=== PATIENT | female | born 1955 | race Caucasian/White ===

== ENCOUNTER 2018-06-25 11:30 | Outpatient (RCR) | payer BC, SELFPAY ==
--- NOTE | 2018-05-28 13:52 | HP.PTEVAL_ITS ---
Patient's Visit Information JEFFERY CLAYTON is a 63 year old F referred to Physical Therapy by Tommy Garnett DPM with a diagnosis of Left Ankle/Foot surgery. Date of Evaluation: 05/28/18 Physical Therapist: Davina Yarbrough DPT - Visit Plan Frequency: 2x /Week Duration: 4 Weeks Plan: Waiting to hear back from MD- current status is boot during PT. Focus on LE and core s/s s/p ankle/foot surgery with focus on functional mobility - Subjective Findings: Left plantar fasciotomy and achillles resection april [address] Briggs. After 4 weeks she was allowed to put the boot on and she has been putting weight on it ever since- was using a knee bike- Has no used an AD with a boot but was told not to put weight on it without the boot on. Does not sleep in the boot. Fully I prior to surgery. Does not work ouside of the home. Current pain level ia 3-5/10. Worst: 5/10 Agg: being up on it to long (45 min to an hour). Eases: rest, elevation. Best: 0/10. Pain is located in the bottom of the heel. Describes the pain as achy pains in the leg and sharp pain in the heel. No N/T currently. Wears compression stocks and that helps with her varicous veins. Sleep: does wake her up sometimes with shooting pains. PMhx/Meds: scanned in chart. Very active with her home management- was walking on the TM in the house but stopped due to pain- started with 15 min and was almost up to 45 min to an hour. Does wear orthotics in her shoes. No recent x- rays or MRI - Objective Posture: Fh, RS- can correct with verbal cues but does not maintain. Gait: antalgic- CAM walker on the left LE- poor heel/toe pattern. Observation: incision healed well- mild dry skin around incision but no redness. Girth: 6 above ankle joint:31 cm 8 above ankle joint: 37 cm Figure 8: 51 cm Malls: 25 cm Mets: 21cm. ROM: DF: neutral, PF: 40 degrees, Inv: 40 degrees Ever: 30 degrees Knee/hip: WFL. Strength: Ankle: 4/5 throughout available range. Flex: Gastroc: mod, Soleus: mild HS: mod. Standing not tested until MD clearance without boot - Goals Goal 1:: Patient will be I with HEP and progression Goal Time Frame: 4-6 Weeks Goal 2:: Patient will ambulate >300 feet with a normalized gait pattern no AD or cam walker per MD orders Goal Time Frame: 4-6 Weeks Goal 3:: Patient will SLS for 30 sec without LOB Goal Time Frame: 4-6 Weeks Goal 4:: Patient will demo 5/5 strength in LE where deficit Goal Time Frame: 4-6 Weeks - Rehabilitation Potential Physical Therapy Diagnosis: Patient presents with hypomobility- she has decreas ed ROM, strength and muscular endurance in LE leading to abnormal gait pattern and diminished participation in ADL's. Rehabilitation Potential: Good - Anticipated Interventions Patient/Client Instruction: Educate patient on: Benefits of Fitness Program Therapeutic Exercise to Include: Strength training, Endurance training, Balance training, Agility training, Body mechanics, Postural training, Flexibilty training, Gait and locomotor training, Dynamic Lumbar Stabilization For the Purpose of:: To improve muscle performance and motor function TENS: Yes Cryotherapy (ice pack, ice massage): Yes Thermo therapy (hot pack): Yes Ultrasound (thermal/non thermal): Yes For the Purpose of:: To decrease pain, To decrease swelling/inflammation Thank you for the opportunity to evaluate your patient. For Medicare and Medicare HMO plans, please review the plan of care and approve it. It will need to be FAXED BACK to us at [phone] for Medicare purposes. For Medicare only, by signing this I certify the plan of care. Please let me know if there are questions or concerns regarding this plan of care. Physician Signature: Date:
--- NOTE | 2018-06-25 11:48 | HP.PTDCSUM ---
HP - PT D/C Summary It has been my pleasure to treat JEFFERY CLAYTON under orders from Tommy Garnett DPM, for the diagnosis of Left Ankle/Foot surgery for a total of 8 visit(s). Discharge Date: Please see the following information for a summary of their discharge status. - Subjective Subjective: Patient reports that the pain is much better. 1/10 at the worst. Reports there is nothing she can't do with her foot. She was on a step ladder yesterday. Is in shoes all the time. - Pain L foot Pain Intensity (Out of 10): 0 - Overall Improvement % Improvement: 95 - Objective Objective/Function: Posture: Fh, RS- can correct with verbal cues but does not maintain. Gait: slightly antalgic- mild decrease in heel/toe pattern. Observation: incision healed well ROM: DF: 10 degrees, PF:60 degrees, Inv: 40 degrees Ever: 30 degrees Knee/hip: WFL. Strength: Ankle: 5/5 . Flex: Gastroc: mild, Soleus: mild HS: mod. SLS: 15 sec without LOB - Goals Goal 1:: Patient will be I with HEP and progression Goal Progress: Goal Met Goal 2:: Patient will ambulate >300 feet with a normalized gait pattern no AD or cam walker per MD orders Goal Progress: Progressing Goal 3:: Patient will SLS for 30 sec without LOB Goal Progress: Progressing Goal 4:: Patient will demo 5/5 strength in LE where deficit Goal Progress: Goal Met - Plan Plan: Discharge to I HEP - D/C Information If there are questions or concerns regarding this patient's physical therapy, please feel free to call me at [phone]. Thank you for the referral of this patient. Sincerely, YORDAN MarquisT
== END 2018-06-25 19:00 | disposition home or self-care (01) ==
LOC: PT 11:30
PROVIDERS: Family Provider Internal Medicine; PCP Internal Medicine; Referring Provider Podiatrist; Visit Provider Podiatrist
DX: Z98.890 Other specified postprocedural states (principal)
CPT/HCPCS: 97110; 97116; 97161; 97164

== ENCOUNTER 2019-01-15 03:19 | Emergency (ER) | payer BC, SELFPAY ==
[2019-01-15 03:20] VITALS: BP 156/72; PULSE 98; RESP 16; TEMP 36.4; O2SAT 97; BMI 32.6
--- NOTE | 2019-01-15 03:33 | US_ITS ---
STUDY: ABDOMINAL ULTRASOUND - RIGHT UPPER QUADRANT REASON FOR VISIT: Female, 63 years old upper abdominal pain. TECHNIQUE: Ultrasound evaluation of the right upper quadrant was performed with real-time and static adkins-scale imaging. TECHNICAL QUALITY: Adequate. COMPARISON: None. FINDINGS: Liver: The liver measures 14.6 cm. There is normal echogenicity of the liver. The bile ducts are within normal limits. There is hepatic color flow. The direction of portal flow is hepatopetal. There is no demonstrated mass lesion. Gallbladder: Normal distended gallbladder. The gallbladder wall measures 2.6 mm. There is a negative sonographic Mendez's sign. There is no pericholecystic fluid. There are multiple gallstones, ranging up to about 3.6 cm. Common Bile Duct (C.B.D.): The common bile duct measures 6.3 mm. Pancreas: Normal size of the head, body and tail of the pancreas. There is normal echogenicity of the pancreas. There is no demonstrated pancreatic mass or cyst. Right Kidney: Normal size of the right kidney. The right kidney measures 11.0 x 4.8 x 4.3 cm. Normal renal cortex. The right cortex measures 1.3 cm. There is no demonstrated renal mass or cyst. There is no right hydronephrosis. US/Gallbladder IMPRESSION: Multiple gallstones in an otherwise normal-appearing gallbladder. No bile duct dilatation. Electronically Signed: Rey Gramajo MD at 4:57 EDT , Service support ,
--- NOTE | 2019-01-15 03:33 | ED.DCSUM_ITS ---
History of Present Illness Chief Complaint: Abd Pain Narrative: Patient is a 63-year-old female who presents with abdominal pain. This began about 5 PM yesterday. She rates it as a 20 out of 10. She was trying to wait to see if the symptoms would improve. She tried Pepto-Bismol without relief. She complains of upper abdominal pain radiating through to the back. This is across the entire upper abdomen is not worse on one side of the other. She describes it as cramping in nature. She had one episode of nonbloody nonbilious emesis shortly before presentation here to the emergency department. She had diarrhea last week but this has since resolved. She does report sweats tonight and felt hot but did not check her temperature. Prior surgical history includes total hysterectomy. She is not treated for hyperlipidemia. She denies alcohol use. Past Medical History - Allergies and Home Meds Allergies/Adverse Reactions: Allergies acetaminophen [From Vicodin] Allergy (Verified 01/15/19 03:26) Unknown clarithromycin [From Biaxin] Allergy (Verified 01/15/19 03:26) Unknown hydrocodone bitartrate [From Vicodin] Allergy (Verified 01/15/19 03:26) Unknown ibuprofen [From Motrin] Allergy (Verified 01/15/19 03:26) Vomiting ketoprofen Allergy (Verified 01/15/19 03:26) Unknown orphenadrine Allergy (Verified 01/15/19 03:26) Unknown Penicillins Allergy (Verified 01/15/19 03:26) Rash propoxyphene HCl [From Darvon] Allergy (Verified 01/15/19 03:26) Unknown tramadol HCl [From Ultram] Allergy (Verified 01/15/19 03:26) Unknown celecoxib [From Celebrex] Adverse Reaction (Verified 01/15/19 03:26) Other Primary Care Physician: Marjorie Ortiz MD [Primary Care Provider] - Past Medical History: - - Thyroid disease Surgical History: hysterectomy Smoking Status: Former smoker Review of Systems All systems negative except as indicated General: Reports: Fever, Subjective, Sweats Cardiovascular: Denies: Chest pain Respiratory: Denies: Dyspnea Gastrointestinal: Reports: Abdominal pain, Nausea, Vomiting, Diarrhea Physical Exam Vital Signs/Narrative: Vital Signs Temp Pulse Resp BP Pulse Ox 01/15/19 03:20 97.6 F L 98 16 156/72 H 97 Inital Vital Signs reviewed: Yes General: Well nourished, - - Patient appears uncomfortable, moaning Head: Normocephalic Eyes: EOMI ENT: Moist mucous membranes Cardiovascular: Regular rate, Regular rhythm Respiratory: No distress, CTA bilaterally Abdomen: Soft, Tender - Epigastric and bilateral upper quadrant abdominal tenderness without guarding without rebound nondistended Skin: Normal color Neurological: Alert Psychological: Normal affect Diagnostic/Tx/Re-eval Impressions Gallbladder Ultrasound 01/15/19 03:33 IMPRESSION: Multiple gallstones in an otherwise normal-appearing gallbladder. No bile duct dilatation. Electronically Signed: Rey Gramajo MD at 4:57 EDT , Service support , 01/15/19 03:33 Gallbladder [US] Stat Laboratory Results 01/15/19 01/15/19 03:25 03:25 WBC 9.8 RBC 4.48 Hgb 12.2 Hct 39.1 MCV 87.3 MCH 27.2 MCHC 31.2 L RDW Std Deviation 46.1 H RDW Coeff of Kvng 14.4 Plt Count 238 MPV 10.3 Immature Gran % (Auto) 0.200 Neut % (Auto) 86.8 H Lymph % (Auto) 9.9 L Rock % (Auto) 2.7 Eos % (Auto) 0.1 Baso % (Auto) 0.3 Absolute Neuts (auto) 8.5 H Absolute Lymphs (auto) 0.97 Nucleated RBC % 0 Sodium 140 Potassium 2.9 L Chloride 100 Carbon Dioxide 29.0 Anion Gap 11 BUN 13 Creatinine 1.08 H Estim Creat Clear Calc 39.71 Est GFR (MDRD) Af Amer 66 Est GFR (MDRD) Non-Af 54 L BUN/Creatinine Ratio 12.0 Glucose 138 H Calcium 9.9 Total Bilirubin 0.30 AST 17 ALT 24 Alkaline Phosphatase 145 H Total Protein 8.4 H Albumin 3.8 Globulin 4.6 H Albumin/Globulin Ratio 0.8 L Lipase 214 - Medical Decision Making Patient was treated with IV fluids, morphine, Zofran. She had a greater than 50% improvement of symptoms. Her laboratory studies as above are unremarkable except potassium 2.9. Right upper quadrant ultrasound showed multiple gallstones. She does not have evidence of acute cholecystitis. She was given IV potassium chloride and we will also start her on oral KCl. She was given prescriptions for [place] and Zofran for as needed for symptomatic relief and she was referred to surgery for outpatient follow-up. She understands to return for new or worsening symptoms and was advised on specific signs and symptoms to monitor for. She was counseled on diet to avoid biliary colic. ED Disposition - Plan for ED Patient: Disposition: Home or Assisted Living Diagnosis: Biliary colic Instructions: BILIARY COLIC with Gallstone (Confirmed) Prescriptions: Potassium Chloride [K-Dur] 20 meq PO DAILY #5 tab Prescription Printed Hydrocodone Bitart/Apap 5-325 [[place] 5MG-325MG] 1 tab PO Q6H PRN PRN 3 Days #10 tab PRN Reason: Pain Prescription Printed Ondansetron [Zofran Odt] 4 mg PO Q8H PRN PRN #10 tab PRN Reason: Nausea Prescription Printed Referrals: Marjorie Ortiz MD [Primary Care Provider] - Otf Fernández MD [STAFF PHYSICIAN] -
--- NOTE | 2019-01-15 03:33 | EKG12_ITS ---
Test Reason : ABD PAIN Blood Pressure : / mmHG Vent. Rate : 059 BPM Atrial Rate : 059 BPM P-R Int : 164 ms QRS Dur : 090 ms QT Int : 432 ms P-R-T Axes : 047 008 -02 degrees QTc Int : 427 ms Sinus bradycardia Otherwise normal ECG Confirmed by BERT DIAZ, JORDON ([id number]), editorial specialist HUMA TRIVEDI ([id number]) on 01/22/2019 9:34:20 A M Referred By: ALEXANDER Confirmed By:RIAZ NOEL MD
[2019-01-15] MEDS: 0.9% Normal Saline 1,000 ML 1000 ML IV (03:38)
[2019-01-15] MEDS: Morphine 4 MG/ML Syringe IV (03:38)
[2019-01-15] MEDS: Ondansetron 4 MG/2 ML Vial IV (03:38)
[2019-01-15 03:49] LABS: Absolute Lymphocyte Count 0.97 X10^3/uL (0.83-4.51); Absolute Neutrophil Count 8.5 X10^3/uL (2.0-7.7); Basophil# 0.03 X10^3/uL; Basophil% 0.3 % (0-1); Eosinophil# 0.01 X10^3/uL; Eosinophils% 0.1 % (0-5); Hematocrit 39.1 % (37-47); Hemoglobin 12.2 g/dL (12.0-15.0); Lymphocyte # 0.97 X10^3/ul (4.0); Lymphocyte % 9.9 % (19-41); Mean Corp Hgb Conc 31.2 g/dL (32-36); Mean Corpuscular Hgb 27.2 pg (27.0-32.0); Mean Corpuscular Volume 87.3 fL (81-99); Mean Platelet Vol. 10.3 fl (6.2-12.0); Monocyte# 0.27 X10^3/uL; Monocyte% 2.7 % (0-10); NRBC Flagged by Analyzer 0 % (0-5); Neutrophil # 8.52 X10^3/uL (2.7-7.7); Neutrophil % 86.8 % (47-70); Platelet Count 238 K/mm3 (150-450); RBC Distribution Width CV 14.4 % (11.6-14.6); RBC Distribution Width SD 46.1 fl (35.1-43.9); Red Blood Count 4.48 M/mm3 (4.2-5.4); White Blood Count 9.8 K/mm3 (4.4-11.0)
[2019-01-15 04:00] LABS: ALB/GLOB Ratio 0.8 RATIO (0.9-2.4); AST(SGOT) 17 U/L (15-37); Alanine Aminotransfer ALT/SGPT 24 U/L (13-56); Albumin, Serum 3.8 g/dL (3.2-5.0); Alkaline Phosphatase 145 U/L (45-117); Anion Gap 11 (5-15); BUN 13 mg/dL (7-18); Calcium,Total 9.9 mg/dL (8.5-10.1); Chloride 100 mmol/L (98-107); Creatinine, Serum 1.08 mg/dL (0.55-1.02); EST Glomerular Filtration Rate 54 mL/min (>60); Est Glom Filt Rate - Afr Amer 66 mL/min (>60); Estimated Creatinine Clearance 39.71 ml/min; Globulin 4.6 g/dL (2.2-4.2); Glucose 138 mg/dL (74-106); Lipase 214 U/L (73-393); Potassium 2.9 mmol/L (3.5-5.1); Protein, Total 8.4 g/dL (6.4-8.2); Sodium Level 140 mmol/L (136-145)
[2019-01-15 04:19] VITALS: BP 148/71; PULSE 67; RESP 12; O2SAT 99
[2019-01-15] MEDS: Potassium Chloride 10mEq/100mL 10 MEQ/100 ML IV.SOLN. 100 MEQ IV BOLUS ×4 (05:08→08:47)
[2019-01-15] MEDS: Ketorolac 30 MG/ML Syringe IV (05:15)
[2019-01-15 05:19] VITALS: BP 141/72; PULSE 61; RESP 11; O2SAT 89
--- NOTE | 2019-01-15 06:41 | ED.RN ---
PT STATED SHE WAS HAVING LEG CRAMPS. MD MADE AWARE NO FURTHER ORDERS AT THIS TIME, WILL CONTINUE TO MONITOR THE PT.
[2019-01-15 07:00] VITALS: BP 104/79; PULSE 66; RESP 14; O2SAT 98
[2019-01-15 08:32] VITALS: BP 121/70; PULSE 64; RESP 11; O2SAT 100
[2019-01-15 10:36] VITALS: BP 134/68; PULSE 52; PULSE 57; RESP 15; RESP 17; O2SAT 100; O2SAT 99
== END 2019-01-15 10:44 | disposition home or self-care (01) ==
PROVIDERS: Emergency Provider Emergency Medicine; Family Provider Internal Medicine; PCP Internal Medicine
DX: K80.70 Calculus of gallbladder and bile duct without cholecystitis without obstruction (principal); E87.6 Hypokalemia; E07.9 Disorder of thyroid, unspecified; Z88.6 Allergy status to analgesic agent; Z88.5 Allergy status to narcotic agent; Z88.0 Allergy status to penicillin; Z87.891 Personal history of nicotine dependence; Z90.710 Acquired absence of both cervix and uterus
CPT/HCPCS: 76705; 80053; 83690; 85025; 93005; 96361; 96365; 96366; 96375; 99284; J7030; A4216; J2405

== ENCOUNTER 2019-01-22 17:34 | Observation (INO) | payer BC, SELFPAY ==
[2019-01-17 08:46] VITALS: BMI 32.6
--- NOTE | 2019-01-17 09:33 | HP_ITS ---
Intake Vital Signs 01/17/19 Body Mass Index (BMI) 32.6 01/17/19 Height 5 ft 1 in 01/17/19 Blood Pressure 150/90 H 01/17/19 Blood Pressure Location Rt brachial 01/17/19 Respiratory Rate 18 Intake Visit Reasons: ER 01/15 Gall Stones Ip Architect Required: No Is patient in pain?: No Allergies acetaminophen [From Vicodin] Allergy (Verified 01/17/19 08:46) Unknown clarithromycin [From Biaxin] Allergy (Verified 01/17/19 08:46) Unknown hydrocodone bitartrate [From Vicodin] Allergy (Verified 01/17/19 08:46) Unknown ibuprofen [From Motrin] Allergy (Verified 01/17/19 08:46) Vomiting ketoprofen Allergy (Verified 01/17/19 08:46) Unknown orphenadrine Allergy (Verified 01/17/19 08:46) Unknown Penicillins Allergy (Verified 01/17/19 08:46) Rash propoxyphene HCl [From Darvon] Allergy (Verified 01/17/19 08:46) Unknown tramadol HCl [From Ultram] Allergy (Verified 01/17/19 08:46) Unknown celecoxib [From Celebrex] Adverse Reaction (Verified 01/17/19 08:46) Other Medications Ascorbic Acid [Vitamin C] 1,000 mg PO DAILY 01/15/19 [History Confirmed 01/17/19] Biotin 800 mcg PO DAILY 01/15/19 [History Confirmed 01/17/19] Calcium Carbonate/Vitamin D3 [Calcium 600-Vit D3 800 Tablet] 2 ea PO DAILY 01/15/19 [History Confirmed 01/17/19] Estradiol [Estrace (G)] 1 mg PO DAILY 01/15/19 [History Confirmed 01/17/19] Hydrocodone Bitart/Apap 5-325 [[place] 5MG-325MG] 1 tab PO Q6H PRN PRN 3 Days #10 tab 01/15/19 [Rx Confirmed 01/17/19] Levothyroxine Sodium 88 mcg PO DAILY 01/15/19 [History Confirmed 01/17/19] Loratadine [Claritin] 10 mg PO DAILY 01/15/19 [History Confirmed 01/17/19] Multivitamin with Minerals [Multiple Vitamin] 1 ea PO DAILY 01/15/19 [History Confirmed 01/17/19] Ondansetron [Zofran Odt] 4 mg PO Q8H PRN PRN #10 tab 01/15/19 [Rx Confirmed 01/17/19] Potassium Chloride [K-Dur] 20 meq PO DAILY #5 tab 01/15/19 [Rx Confirmed 01/17/19] PFSH Medical History Allergies (Acute) Gallstones (Acute) Hypothyroid (Acute) Surgical History Previous back surgery (Acute) S/P carpal tunnel release (Acute) S/P foot surgery (Acute) S/P hysterectomy (Acute) Family History Mother Cancer Social History (Updated 01/17/19 @ 09:33 by Otf Fernández MD) Smoking Status: Former smoker alcohol intake: never HPI HPI HPI: JEFFERY CLAYTON, is a 63 F who presents to the office today for HPI HPI Surgical H&P: Yes HPI: JEFFERY CLAYTON, is a 63 F who presents to the office today for Gallstone. Patient has been having epigastric pain intermittently for the last few years. She says over the last 2 weeks has been much worse. She had a ultrasound of her gallbladder which showed a very large gallstone. There were no signs of acute cholecystitis. ROS General General: Yes weight change and fatigue; no appetite HEENT HEENT: No difficulty swallowing, eye injury or eye surgery Endo Endocrine: Yes thyroid disease; no diabetes mellitus Skin Skin: No rash or changing moles Musc Musculoskeletal: Yes back problems; no arthritis or rheumatoid arthritis Cardio Cardiovascular: No murmur, pacemaker, heart disease, atrial fibrillation, high blood pressure, heart attack, heart stent, palpitations, shortness of breat with exertion or chest pain Psych Psychiatric: No depression or anxiety Resp Respiratory: No shortness of breath, No sleep apnea, No cough, No COPD, No asthma, No emphysema, No wheezing Gastro Gastrointestinal: Yes abdominal pain, Yes nausea or vomiting, Yes diarrhea, No constipation, No blood in stool, No acid reflux, Yes hemorrhoids, No ulcers, Yes gallbladder problem, No black,tarry stools Alec Hematologic: No blood thinners, No blood disorders Neuro Neurologic: Yes system reviewed and no additional complaints, except as docu Exam Const General: cooperative Orientation: alert, oriented x3 HENMT Head: normal to inspection Ears: hearing grossly normal bilaterally Eyes General: appearance normal, both eyes and all related structures Visual Dove: normal visual dove by confrontation Neck Neck: normal visual inspection Chest Chest palpation & inspection: normal inspection of the chest Resp Effort & Inspection: normal respiratory effort Auscultation: clear to auscultation bilaterally Cardio Rate: regular rate Rhythm: regular rhythm Heart Sounds: no murmurs GI Inspection: non-distended Palpation: soft, nontender Musc Cervical Spine: normal cervical lordosis, cervical ROM normal Skin General: no rashes or lesions noted Neuro General: alert, oriented x3 Cranial Nerves: CN's II-XI intact bilaterally Cognition: normal cognition Extrem General: normal to inspection, full ROM Psych Appearance: grossly normal Affect: normal affect Assessment & Plan Problems 1. Calculus of gallbladder without cholecystitis without obstruction K80.20 Plan The patient had an ultrasound which showed a 1.8 cm gallstone in the neck of the gallbladder. Patient does have symptoms suggestive of biliary colic. I recommend laparoscopic cholecystectomy. I discussed the procedure in detail with the patient. I discussed the risks, benefits, and alternatives of the procedure. I discussed the risks including but not limited to bleeding, infection, injury to surrounding organs such as the liver, bile duct, bowels. I did discuss the possibility of having to convert to an open procedure as well as the possibility that if any injuries occurred this may necessitate further surgery at a tertiary care center. Otf Fernández MD Pager: [facility] [address] [place] [address], [address] [place] [address] Office: Coding Level of Care Code Off vis,new,level 4 Diagnoses Calculus of gallbladder without cholecystitis without obstruction K80.20 ??Cholelithiasis location: gallbladder ??Cholecystitis presence: without cholecystitis ??Biliary obstruction: without biliary obstruction Time Spent (min) 45 01/17/19 2480 <Electronically signed by Otf childress MD> Date _ Otf Fernández MD I have re-examined the patient. There are no clinical changes since date of exam.
[2019-01-20 09:09] LABS: Potassium 3.1 mmol/L (3.5-5.1); Thyroid Stim Hormone (TSH) 4.03 uIU/mL (0.358-3.74)
[2019-01-22] VITALS (12 sets, daily range): BP systolic 117–147; BP diastolic 51–76; PULSE 54–97; RESP 14–18; TEMP 36.4–37.1; O2SAT 93–100; BMI 31.7
--- NOTE | 2019-01-22 11:19 | EKG12_ITS ---
Test Reason : PRE OP Blood Pressure : / mmHG Vent. Rate : 068 BPM Atrial Rate : 068 BPM P-R Int : 164 ms QRS Dur : 078 ms QT Int : 408 ms P-R-T Axes : 041 001 000 degrees QTc Int : 433 ms Normal sinus rhythm Normal ECG When compared with ECG of 15-JAN-2019 03:45, No significant change was found Confirmed by BERT DIAZ, JORDON ([id number]), industrial editor HUMA TRIVEDI ([id number]) on 01/29/2019 11:16:51 AM Referred By: Marjorie Ortiz Confirmed By:RIAZ NOEL MD
[2019-01-22 11:51] LABS: Magnesium 2.3 mg/dL (1.6-2.6)
[2019-01-22] MEDS: Lactated Ringers 1,000 ML 100 ML IV ×2 (12:22→15:40)
[2019-01-22] MEDS: Ciprofloxacin 400 MG/200 ML BAG 200 MG IV (12:23)
--- NOTE | 2019-01-22 12:35 | GALL_PTH ---
PATIENT: JEFFERY CLAYTON LOC: MS3 U#:[id number] AGE/SX: 63/F ROOM: MS313 RE01/22/[address]: Dr. Otf Fernández MD : 1955 BED: 1 DIS: 01/23/2019 SPEC #: [id number] RECD: 01/22/19 16:00 STATUS: EPI GARCIA #: [id number] JORGE LUIS: 01/22/19 12:[address]: Otf Fernández DEPT: SURGICAL PATHOLOGY RECD BY: Patrick Ward ENTERED: 01/23/19 08:03 SP TYPE: GINGER YEUNG DR: Dr. Marjorie Ortiz MD Tissues: Gallbladder, NOS Procedures: Surgery Specimen Level III HEADER OPERATION: Laparoscopic cholecystectomy with IOC PRE-OP DIAGNOSIS: Cholelithiasis; cholecystitis TISSUE SUBMITTED: Gallbladder MICROSCOPIC DIAGNOSIS Gallbladder, cholecystectomy: Chronic cholecystitis and cholelithiasis. Benign pericystic lymph node. AM:radha 01/24/19 MICROSCOPIC DESCRIPTION Slides are reviewed. GROSS DESCRIPTION Received is one container labeled with the patient's name and designated gallbladder. The specimen consists of a gallbladder measuring 6.5 cm in length and up to 3 cm in diameter. The external surface is pink-galindo, smooth and glistening for the most part. Focally it is granular, hemorrhagic and contains cautery artifact. The gallbladder contains green-yellow mucoid bile, sludge material and one ovoid, irregular, greenish-yellow stone measuring 3 x 2 x 2 cm. The mucosa is bile-stained and without any mass lesions. The gallbladder wall measures up to 0.3 cm in thickness. Computer Laboratory Technician sections from the gallbladder and the cystic duct are submitted in one cassette. / SJ:radha 01/23/19 TC:3 CPT: 66579
--- NOTE | 2019-01-22 13:05 | RAD_ITS ---
CLINICAL HISTORY: Female, 63 years old. Abdominal pain PROCEDURE: CHOLANGIOGRAM - intraoperative FLUOROSCOPY TIME (if supplied): (0:15) minutes/seconds TECHNIQUE: (All elements of maximal sterile barrier technique followed, including US elements as applicable) 15 seconds of fluoroscopy of the abdomen was utilized utilized and operating room during an intraoperative cholangiogram in a cine run is submitted for interpretation. Next FINDINGS: A cannula seen within the cystic duct remnant. Examination of the biliary tree demonstrates no evidence of stricture, dilatation, or filling defect to suggest common bile duct stone. This spillage of contrast through the ampulla into the duodenum. RAD/Cholangiogram/ O R,Initial IMPRESSION: No common bile duct stone. Electronically Signed: Flip Klein MD at 13:57 EDT Tel , Service support ,
[2019-01-22] MEDS: Bupivacaine 0.25% 30 ML Vial (14:06)
--- NOTE | 2019-01-22 14:18 | OP.PCM_ITS ---
Problem List (1) Cholelithiasis Status: Acute Qualifiers: Cholelithiasis location: gallbladder Cholecystitis presence: without cholecystitis Biliary obstruction: without biliary obstruction Qualified Code(s): K80.20 - Calculus of gallbladder without cholecystitis without obstruction Report of Operation Date of Procedure: 01/22/19 Pre-Operative Diagnosis: Cholelithiasis Post-Operative Diagnosis: Same Surgery/Procedure Performed:: Laparoscopic cholecystectomy with cholangiogram Specimen's removed: Gallbladder and contents Description of Procedure: After obtaining informed consent patient was brought back to the operating room. General anesthesia was induced. The abdomen was prepped and draped in usual sterile fashion. A small midline incision was made superior to the umbilicus and deepened to the level of fascia. The fascia was elevated and incised. Next the peritoneum was elevated and incised in the same fashion. Finger sweep was performed and the Cotto trocar was placed into the abdomen. The balloon was inflated. The abdomen was inflated to 15 mmHg. Next a camera was introduced into the abdomen and the abdomen was inspected. Next under direct visualization three 5-mm ports were placed one subxiphoid and 2 subcostal. Next the gallbladder was elevated and retracted toward the right shoulder. The peritoneum was stripped from the gallbladder. The infundibulum was located and retracted laterally. Next the triangle of Calot was dissected and the cystic duct and cystic artery were identified. Cholangiograms were performed. The Rock clamp was used to clamp across the infundibulum and the catheter needle was inserted into the gallbladder. Under fluoroscopy contrast was instilled into the gallbladder and the common duct, cystic duct as well as proximal hepatic ducts were identified. There was good filling of the duodenum. There were no filling defects noted in the common bile duct. 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 The clamp was removed as well as the needle and the infundibulum was grasped once more. Three hemolock clips were placed across the cystic duct as proximal to the gallbladder as possible to avoid the right hepatic duct draining into the distal cystic duct. The cystic duct was then divided leaving 2 clips on the stump. The cystic artery was clipped and divided in the same fashion. The hook cautery was then used to take the gallbladder off of the gallbladder bed. Hemostasis was obtained. Gallbladder fossa was irrigated and no active bleeding or bile leakage was noted. Next the camera switched to a 5 mm camera and introduced in the subxiphoid port. An Endopouch bag was placed through the umbilical port and the gallbladder was placed into it. The gallbladder was then removed through the umbilical incision. The camera was then reinserted through the umbilical port. The gallbladder fossa was inspected once more and noted to be hemostatic with no leaking bile. A small piece of Surgicel foam was placed in the gallbladder fossa. The abdomen was suctioned dry. The 5 mm ports were removed under direct visualization. The umbilical port was then removed and the air was removed from the abdomen. Next using an 0 Vicryl suture the umbilical fascia was closed in a [id number] fashion. The umbilical port site was irrigated local anesthetic was administered to all the incisions. All the incis ions were closed with interrupted subcuticular 4-0 Monocryl sutures followed by Steri-Strips and dressings. The patient was awoken and taken to PACU in stable condition. - Admit VTE Documentation VTE Mechan Device Prophylaxis: SCD's
--- NOTE | 2019-01-22 14:22 | DCINST_ITS ---
Discharge Diet: Light diet - advance as tolerated Discharge Activity: Return to Normal Activity, May Not Drive - for 2-3 days or while taking narcotic pain medicataions., - - Do not drive, work heavy equipment or sign legal documents for 24 hours. May shower in (days): 1 - with the bandage in place. Additional Activity Instructions:: Pain medication may cause nausea. You should typically eat light foods as you take your pain medications. Pain medication may also cause constipation. If this is a problem for you, please discuss with your doctor. Call your doctor if your incision/area has: Continuous Slow Oozing, Sudden Increased Bleeding, Increased Pain/ Swelling, Increased Redness, Foul Smelling Discharge, Fever of 101 or Higher Call your doctor if you observe: Fever of 101 or Higher Suture Line Care: Avoid Pulling/Pushing, Avoid Pinching/Bending Additional Dressing/Incision Instructions:: Leave operative bandaids on for 2 days. When you remove dressing, leave Steri-Strips on until your follow-up appointment, or until the Steri-Strips fall off on their own. Allergies/Adverse Reactions: Allergies acetaminophen [From Vicodin] Allergy (Verified 01/20/19 08:10) Unknown clarithromycin [From Biaxin] Allergy (Verified 01/20/19 08:10) Unknown hydrocodone bitartrate [From Vicodin] Allergy (Verified 01/20/19 08:10) Unknown ibuprofen [From Motrin] Allergy (Verified 01/20/19 08:10) Vomiting ketoprofen Allergy (Verified 01/20/19 08:10) Unknown nickel Allergy (Verified 01/20/19 08:11) Hives orphenadrine Allergy (Verified 01/20/19 08:10) Unknown Penicillins Allergy (Verified 01/20/19 08:10) Rash propoxyphene HCl [From Darvon] Allergy (Verified 01/20/19 08:10) Unknown tramadol HCl [From Ultram] Allergy (Verified 01/20/19 08:10) Unknown celecoxib [From Celebrex] Adverse Reaction (Verified 01/20/19 08:10) Other Medications to take at Discharge Ascorbic Acid [Vitamin C] 1,000 mg PO DAILY 01/15/19 Biotin 10,000 mcg PO DAILY 01/15/19 Calcium Carbonate/Vitamin D3 [Calcium 600-Vit D3 800 Tablet] 2 ea PO DAILY 01/15/19 Estradiol [Estrace (G)] 1 mg PO DAILY 01/15/19 Levothyroxine Sodium 88 mcg PO DAILY 01/15/19 Loratadine [Claritin] 10 mg PO BID 01/15/19 Multivitamin with Minerals [Multiple Vitamin] 1 ea PO DAILY 01/15/19 Ondansetron [Zofran Odt] 4 mg PO Q8H PRN PRN #10 tab 01/15/19 Potassium Chloride [K-Dur] 20 meq PO DAILY #5 tab 01/15/19 Oxycodone HCl/Acetaminophen [Percocet 5/325] 1 - 2 tablet PO Q4H PRN PRN 7 Days #40 tablet 01/22/19 The following prescriptions were given: Oxycodone HCl/Acetaminophen [Percocet 5/325] 1 - 2 tablet PO Q4H PRN PRN 7 Days #40 tablet PRN Reason: Pain Transmission Status: Sent to [facility] Primary Care Physician: Marjorie Ortiz MD [Primary Care Provider] - Test Results: Test results from this visit will be discussed in further detail at your follow- up appointment, if applicable. Please Follow Up With: Otf Fernández MD When: Please call to schedule 2 week follow up appointment. [phone]
[2019-01-22] MEDS: 0.9% Normal Saline 1,000 ML 100 ML IV (18:57)
[2019-01-22] MEDS: Acetaminophen 325 MG Tablet 650 MG PO (22:14)
[2019-01-22] MEDS: Pantoprazole Sodium 20 MG Tablet PO (22:14)
[2019-01-22] MEDS: Docusate Sodium 100 MG Capsule PO (22:14)
--- NOTE | 2019-01-22 22:58 | NURSING ---
PT WALKED A FULL LAP IN THE [place]. TOLERATED WELL.
[2019-01-23] MEDS: 0.9% Normal Saline 1,000 ML 100 ML IV (03:58)
[2019-01-23 04:01] VITALS: BP 118/69; PULSE 76; RESP 16; TEMP 36.9; O2SAT 96
[2019-01-23] MEDS: Acetaminophen 325 MG Tablet 650 MG PO (06:32)
[2019-01-23 08:03] VITALS: BP 117/56; PULSE 74; RESP 18; TEMP 36.7; O2SAT 97
[2019-01-23] MEDS: Pantoprazole Sodium 20 MG Tablet PO (08:09)
[2019-01-23] MEDS: Docusate Sodium 100 MG Capsule PO (08:09)
== END 2019-01-23 11:20 | disposition home or self-care (01) ==
LOC: SDC 18:10
PROVIDERS: Anesthesiology; Admitting Provider Surgery; Family Provider Internal Medicine; PCP Internal Medicine; Referring Provider Internal Medicine; Visit Provider Surgery
PROC: (CPT 47610; principal; 2019-01-22 12:15)
DX: K80.10 Calculus of gallbladder with chronic cholecystitis without obstruction (principal); Z79.899 Other long term (current) drug therapy; E03.9 Hypothyroidism, unspecified; Z87.891 Personal history of nicotine dependence
CPT/HCPCS: 00790; 47563; 74300; 76000; 83735; 84132; 84443; 88304; 93005; 96361; 96365; 99218; J7030; J7120; G0378; G0379; J0744; J2405

== ENCOUNTER 2020-06-22 15:44 | Outpatient (RCR) | payer MEDICARE, SELFPAY ==
[2019-01-22 12:17] VITALS: BMI 31.7
[2020-06-22] MEDS: COVID-19 VACC, MRNA(PFIZER)/PF 30 MCG/0.3 ML SYRINGE IM (14:07)
[2020-07-13] MEDS: COVID-19 VACC, MRNA(PFIZER)/PF 30 MCG/0.3 ML SYRINGE IM (14:02)
== END 2020-09-14 23:59 ==
LOC: IMMUN 15:44
PROVIDERS: PCP Internal Medicine; Visit Provider Family Medicine
DX: Z23 Encounter for immunization (principal)
CPT/HCPCS: 0001A; 0002A; 91300

== ENCOUNTER 2022-11-29 09:02 | Emergency (ER) | payer MEDICARE, SELFPAY ==
[2022-11-29 09:03] VITALS: BP 167/94; PULSE 99; RESP 14; TEMP 36.3; O2SAT 97; BMI 36.1
--- NOTE | 2022-11-29 09:14 | RAD_ITS ---
INDICATION: chest pain EXAMINATION/TECHNIQUE: X-RAY - XR Chest 2 Views COMPARISON: No relevant prior comparison study available FINDINGS: LINES/DEVICES: None. LUNGS: No consolidation, edema or effusion. No pneumothorax. MEDIASTINUM AND CARDIOVASCULAR STRUCTURES: Cardiac silhouette not enlarged. Central airways and mediastinal contour are unremarkable. BONES AND SOFT TISSUES: Unremarkable. RAD/Chest PA and Lateral IMPRESSION: No radiographic evidence of acute cardiopulmonary disease. Electronically Signed: Shayla Bui MD at 9:42 EDT ,
--- NOTE | 2022-11-29 09:15 | ED.VIS.CHEST ---
HPI History of Present Illness Chief Complaint: Chest Pain Informant: patient Narrative Narrative: Patient presents with left-sided chest pain. Patient woke up 3 days ago and had some soreness along her left posterior chest. She states it was just sore when she woke up but it did not wake her up. Is not tearing ripping or severe. But she has noticed over the last 3 days that pain is kind of moved around includes more the whole chest including a little bit of the front mostly down low. If she takes a deep breath it hurts but she is not actually short of breath. But it also hurts with moving or twisting. She also states that she intermittently feels like the muscles of her ribs spasm but that is just occasional. She sat for a while on Sunday but has had no exertion or lifting or injury that she can think of causing this. She has no other pains. No cough, hemoptysis. No fevers. No abdominal pain. Patient has no history of recent smoking high blood pressure cholesterol diabetes or family history of heart disease. She has had no recent surgery travel immobilization personal or family history of DVT or PE. She did have ultrasounds of the legs years ago for some mild swelling which were negative and she has some mild chronic edema but that is totally unchanged. [facility] Medical History (Updated 11/29/22 @ 10:[address] Steve Palacio MD) Allergies Gallstones Hypothyroid Home Medications ascorbic acid (vitamin C) 1,000 mg tablet,extended release 1,000 mg PO DAILY 01/15/19 [History Last Taken Unknown] biotin 800 mcg tablet 10,000 mcg PO DAILY 01/15/19 [History Last Taken Unknown] calcium carbonate 600 mg-vitamin D3 20 mcg (800 unit) tablet 2 ea PO DAILY 01/15/19 [History Last Taken Unknown] estradiol 1 mg tablet 1 mg PO DAILY 01/15/19 [History Last Taken Unknown] levothyroxine 88 mcg tablet 88 mcg PO DAILY 01/15/19 [History Last Taken Unknown] loratadine 10 mg capsule 10 mg PO BID 01/15/19 [History Last Taken Unknown] multivitamin with minerals 1 ea PO DAILY 01/15/19 [History Last Taken Unknown] ondansetron 4 mg disintegrating tablet 4 mg PO Q8H PRN PRN Nausea #10 tabs 01/15/19 [Rx Last Taken Unknown] potassium chloride 20 mEq tablet,extended release(part/cryst) 20 meq PO DAILY #5 tabs 01/15/19 [Rx Last Taken Unknown] hydrocodone-acetaminophen 5-325mg 5mg-325mg 1 tab PO Q6H PRN PRN Pain 3 days #10 TABLETS 11/29/22 [Rx Last Taken Unknown] ondansetron 4 mg disintegrating tablet 4 mg PO Q8H PRN PRN Nausea #10 tabs 11/29/22 [Rx Last Taken Unknown] Allergy/AdvReac Type Severity Reaction Status Date / Time acetaminophen [From Vicodin] Allergy Unknown Verified 11/29/22 09:05 clarithromycin [From Biaxin] Allergy Unknown Verified 11/29/22 09:05 hydrocodone bitartrate Allergy Unknown Verified 11/29/22 09:05 [From Vicodin] ibuprofen [From Motrin] Allergy Vomiting Verified 11/29/22 09:05 ketoprofen Allergy Unknown Verified 11/29/22 09:05 nickel Allergy Hives Verified 11/29/22 09:05 orphenadrine Allergy Unknown Verified 11/29/22 09:05 Penicillins Allergy Rash Verified 11/29/22 09:05 propoxyphene HCl Allergy Unknown Verified 11/29/22 09:05 [From Darvon] tramadol HCl [From Ultram] Allergy Unknown Verified 11/29/22 09:05 celecoxib [From Celebrex] AdvReac Other Verified 11/29/22 09:05 Family History Mother Cancer Surgical History Previous back surgery S/P carpal tunnel release S/P foot surgery S/P hysterectomy S/P laparoscopic cholecystectomy Social History Smoking Status: Former smoker alcohol intake: never ROS ROS ED ROS Narrative A complete review of systems was performed and is negative except as documented in the history of present illness. Some specific details below. Constitutional: No recent fevers or chills. No overall malaise. EYE: No discharge, visual complaints, or pain. ENT: No difficulty swallowing. No swelling. No pain. No reflux symptoms. No congestion runny nose or sneezing. CV: See history of present illness. Respiratory: See history of present illness. No history of asthma. She is not actually short of breath but it does hurt when she takes a deep breath. GI: No abdominal pain. No nausea vomiting diarrhea. No blood in stool. Is eating and drinking normally. : No frequency dysuria or hematuria. Musculoskeletal: No recent trauma. No pains. No new or change in swelling. Skin: No rash. Nondiaphoretic. Neuro: No weakness or numbness. Endocrine: No polyuria or polydipsia. EXAM Physical Exam Narrative Exam Narrative: CONSTITUTIONAL: Patient is nontoxic in appearance. The patient looks comfortable. Work of breathing looks normal. HEENT: No notable trauma. Mucous membranes moist. No sinus tenderness. No indication of pain with swallowing. EYES: No conjunctival injection. No proptosis. NECK:No JVD. No stridor. CARDIOVASCULAR: Regular rate at approximately 80?85. Regular rhythm. No notable murmur. No JVD. Peripheral pulses are normal x4 and equal. RESPIRATORY: No respiratory distress. Breathing is unlabored. No wheezes. No rhonchi. No rales. He does have some pain with a deep breath but it does not cause cessation of inspiration. She does have reproducible left-sided chest wall tenderness. Most of this tenderness is on the posterior lateral aspect. It seems reasonably localized to an area about the size of my palm. But there are no skin changes. But it is quite reproducible. It also hurts when she twists or moves. It hurts enough that she does not even like to twist or bend. Sitting up in the bed so I can listen the back of her lungs actually cause soreness. Exam seems to point to a musculoskeletal source. GASTROINTESTINAL: Not distended. Bowel sounds are normal. No tenderness. No guarding. No rebound. No palpable mass. No bruit is heard. GENITOURINARY: No tenderness over the bladder. No CVA tenderness. MUSCULOSKELETAL: Atraumatic. No notable peripheral edema. She does have some light weight compression hose on which she normally wears. There is no palpable cord. No tenderness along the deep venous system. No asymmetry. NEUROLOGICAL: Patient is alert and appropriate. No focal deficit noted. SKIN: No noted rashes. No diaphoresis. PSYCHIATRIC: Patient is calm. Mood is appropriate. Const Vital Signs: 11/29/22 09:03 Temperature 97.3 F L Temperature Source Temporal Pulse Rate 99 Respiratory Rate 14 Blood Pressure 167/94 H Blood Pressure Mean 118 Pulse Ox 97 Oxygen Delivery Method Room Air MDM MDM MDM Narrative Medical decision making narrative: Patient CBC is normal other than minimal anemia at 11.6 which is not a cause of her symptoms. Platelets white count are normal. Patient's electrolytes show minimal elevation in creatinine and decreased potassium but again these are very small changes and I do not feel they are contributing to her current symptoms. Despite being on her third day of symptoms, her troponin is negative. Her D-dimer is also negative and does not even need to be adjusted for age. My independent her potation of her two-view chest x-ray shows no sign of acute process infiltrate abnormal mediastinum or pneumothorax. Final reading is similar. Patient's exam is consistent with musculoskeletal pain. She has normal pulses. No severe pain tearing or ripping. No syncope. She is not tachycardic tachypneic or hypoxic. Troponin is negative. D-dimer is negative. I do not think she needs further work-up or CT scan of the chest at this time. We will get her meds for pain. I will try to talk with her on options as she is allergic to most classes of medicines. Patient's allergy to most of her pain meds are GI upset. She gets nauseated. I will write for hydrocodone. She can take half a tablet. We will try some Zofran with that. She is also able to use ice on the area and could substitute regular Tylenol which she is not allergic to. We discussed return with worsening pain, fevers, coughing, migration of pain or any other concerns. Lab Data Attestation: I reviewed the patient's lab results. Labs: Laboratory Results - last 24 hr 11/29/22 09:21 WBC 9.7 RBC 4.27 Hgb 11.6 L Hct 37.1 MCV 86.9 MCH 27.2 MCHC 31.3 L RDW Std Deviation 46.4 H RDW Coeff of Kvng 14.5 Plt Count 226 MPV 9.8 Immature Gran % (Auto) 0.400 Neut % (Auto) 77.8 H Lymph % (Auto) 16.3 L [place] % (Auto) 4.7 Eos % (Auto) 0.5 Baso % (Auto) 0.3 Absolute Neuts (auto) 7.6 Absolute Lymphs (auto) 1.58 Nucleated RBC % 0 D-Dimer Quant (PE/DVT) 0.29 Sodium 137 Potassium 3.4 L Chloride 106 Carbon Dioxide 26.0 Anion Gap 5 BUN 10 Creatinine 1.12 H Estim Creat Clear Calc 36.28 Est GFR (MDRD) Af Amer 62 Est GFR (MDRD) Non-Af 51 L BUN/Creatinine Ratio 8.9 L Glucose 105 Calcium 9.4 Troponin I High Sens 12 Radiography Diagnostic Testing: Clinical Impression(s) from Imaging Studies Chest X-Ray 11/29/22 09:14 IMPRESSION: No radiographic evidence of acute cardiopulmonary disease. Electronically Signed: Shayla Bui MD at 9:42 EDT , EKG Initial EKG: Comments: My independent interpretation the patient's EKG done for chest pain shows normal sinus rhythm with overall rate of 75. No ectopy. No acute ST elevation or depression. ND interval, QRS duration and QTc are normal. Discharge Plan Triage Chief Complaint: Chest Pain ED Provider: Steve Palacio Dx/Rx/DC Orders Clinical Impression: Left-sided chest pain Instructions: ED Chest Pain, Uncertain Cause Prescriptions: New hydrocodone-acetaminophen [hydrocodone-acetaminophen] 5-325 mg tablet 1 tab PO Q6H PRN PRN (Reason: Pain) 3 Days Qty: 10 0RF Rx Instructions: May start with 1/2 tablet ondansetron [ondansetron] 4 mg tablet,disintegrating 4 mg PO Q8H PRN PRN (Reason: Nausea) Qty: 10 0RF No Action biotin 800 MCG tablet 10,000 mcg PO DAILY ascorbic acid (vitamin C) 1,000 MG tablet extended release 1,000 mg PO DAILY levothyroxine 88 MCG tablet 88 mcg PO DAILY Patient Comments: TAKE 1 TABLET BY MOUTH SIX DAYS A WEEK. TAKE 1/2 TABLET ON SUNDAY. estradiol 1 MG tablet 1 mg PO DAILY Patient Comments: TAKE 1 TABLET BY MOUTH EVERY DAY multivitamin with minerals 1 EACH tablet 1 ea PO DAILY loratadine 10 MG capsule 10 mg PO BID calcium carbonate-vitamin D3 1 EACH tablet 2 ea PO DAILY ondansetron 4 MG tablet 4 mg PO Q8H PRN PRN (Reason: Nausea) Qty: 10 0RF potassium chloride 20 MEQ tablet 20 meq PO DAILY Qty: 5 0RF Primary Care Provider: Marjorie Ortiz Referrals: Marjorie Ortiz MD [Primary Care Provider] - 3-5 Days if not improving Disposition Disposition: Home, Self Care
[2022-11-29 09:28] LABS: Absolute Lymphocyte Count 1.58 X10^3/uL (0.83-4.51); Absolute Neutrophil Count 7.6 X10^3/uL (2.0-7.7); Basophil# 0.03 X10^3/uL; Basophil% 0.3 % (0-1); Eosinophil# 0.05 X10^3/uL; Eosinophils% 0.5 % (0-5); Hematocrit 37.1 % (37-47); Hemoglobin 11.6 g/dL (12.0-15.0); Lymphocyte # 1.58 X10^3/ul (0.83-4.51); Lymphocyte % 16.3 % (19-41); Mean Corp Hgb Conc 31.3 g/dL (32-36); Mean Corpuscular Hgb 27.2 pg (27.0-32.0); Mean Corpuscular Volume 86.9 fL (81-99); Mean Platelet Vol. 9.8 fl (6.2-12.0); Monocyte# 0.46 X10^3/uL; Monocyte% 4.7 % (0-10); NRBC Flagged by Analyzer 0 % (0-5); Neutrophil # 7.56 X10^3/uL (2.7-7.7); Neutrophil % 77.8 % (47-70); Platelet Count 226 K/mm3 (150-450); RBC Distribution Width CV 14.5 % (11.6-14.6); RBC Distribution Width SD 46.4 fl (35.1-43.9); Red Blood Count 4.27 M/mm3 (4.2-5.4); White Blood Count 9.7 K/mm3 (4.4-11.0)
[2022-11-29 09:42] LABS: D-Dimer Quantitative (DVT/PE) 0.29 FEU/ug/m (0.27-0.49)
[2022-11-29 09:50] LABS: Anion Gap 5 (5-15); BUN 10 mg/dL (7-18); BUN/Creat Ratio 8.9 RATIO (10-20); Calcium,Total 9.4 mg/dL (8.5-10.1); Chloride 106 mmol/L (98-107); Creatinine, Serum 1.12 mg/dL (0.55-1.02); EST Glomerular Filtration Rate 51 mL/min (>60); Est Glom Filt Rate - Afr Amer 62 mL/min (>60); Estimated Creatinine Clearance 36.28 ml/min; Glucose 105 mg/dL (74-106); Potassium 3.4 mmol/L (3.5-5.1); Sodium Level 137 mmol/L (136-145); Troponin-I HS 12 pg/mL (3.0-54.0)
[2022-11-29 10:34] VITALS: BP 163/82; PULSE 74; O2SAT 96; O2SAT 97
== END 2022-11-29 10:39 | disposition home or self-care (01) ==
PROVIDERS: Emergency Provider Emergency Medicine; PCP Internal Medicine; Visit Provider Emergency Medicine
DX: R07.9 Chest pain, unspecified (principal); E03.9 Hypothyroidism, unspecified; Z79.890 Hormone replacement therapy; Z79.899 Other long term (current) drug therapy; Z87.891 Personal history of nicotine dependence
CPT/HCPCS: 71046; 80048; 84484; 85025; 85379; 93005; 99284